=== PATIENT | female | born 1985 | race Two or more races ===

== ENCOUNTER 2023-06-06 17:07 | Emergency (ER) | payer BC, SELFPAY ==
[2023-06-06 17:39] VITALS: BP 128/80; PULSE 66; RESP 18; TEMP 36.1; O2SAT 98; BMI 23.0
--- NOTE | 2023-06-06 17:44 | ED_ITS ---
HPI - Ear Problem General Chief complaint: Ear Problems Stated complaint: left ear infection not responding to antibiotics Time Seen by Provider: 06/06/23 17:41 Source: patient and family Mode of arrival: ambulatory Limitations: no limitations History of Present Illness HPI Narrative: 38-year-old female presenting to the ER with complaints of persistent pressure to the left ear. She reports that she was seen by her PCP approximately 8 days ago and was prescribed Ceftin. She went back due to no symptomatic relief in her PCP discontinue the Ceftin and started her on doxycycline. She reports she has been on doxycycline for 4 days and she still continues to have the pressure in her left ear with decreased hearing. She denies any other symptoms related to this. MD Complaint: ear pain and decreased hearing Location: left ear Duration: constant Severity: moderate Relieving factors: nothing Exacerbating factors: nothing Discharge from ear: no Associated symptoms ear: decreased hearing Treatment prior to arrival: other (see above ) Related Data Previous Rx's Medication Instructions Recorded prednisone 20 mg tablet 40 mg (2 x 20 mg) PO DAILY 06/06/23 inflammation 5 days #10 tabs Allergies Allergy/AdvReac Type Severity Reaction Status Date / Time Penicillins Allergy Rash Verified 06/06/23 17:39 Review of Systems Review of Systems: Constitutional : No Weight loss, No Fever, No Chills, No Night Sweats, No Fatigue, No Malaise ENT/Mouth : No Hearing loss, + Ear Pain, No Nasal Congestion, No Sinus Pain, No Hoarseness, No sore throat, No Rhinorrhea, No Swallowing Difficulty Eyes: No Eye Pain, No Swelling, No Redness, No Foreign Body, No Discharge, No Vision Changes Cardiovascular : No Chest Pain, No SOB, No Dyspnea on Exertion, No Orthopnea, No Edema, No Palpitations Respiratory : No Cough, No Sputum, No Wheezing, No Smoke Exposure, No Dyspnea Gastrointestinal : No Nausea, No Vomiting, No Diarrhea, No Constipation, No abdominal Pain, No Hematochezia, No Melena Genitourinary : no irregular bleeding, No Dysuria, No Urinary Frequency, No Hematuria, No Urinary Incontinence, No Urgency, No Flank Pain, No Urinary Flow Changes, No Hesitancy Musculoskeletal : No joint pain, No Myalgias, No Joint Swelling Skin : No Skin Lesions, No rash Neuro : No Weakness, No Numbness, No Paresthesias, No Loss of Consciousness, No Dizziness, No Headache Psych : No Anxiety/Panic, No Depression, No SI/HI/AH/VH, No Social Issues, Heme/Lymph: No Bruising, No Bleeding,No Lymphadenopathy Endocrine : No Polyuria, No Polydipsia, No Temperature Intolerance Yes all other systems are reviewed and are negative [facility] Past Medical History Attestation statement: The following information was validated with the patient. Source: old records reviewed and nursing notes reviewed Physical Exam Vital Signs: Vital Signs: Last Vital Signs Temp 97.0 F 06/06/23 17:39 Pulse 66 06/06/23 17:39 Resp 18 06/06/23 17:39 BP 128/80 06/06/23 17:39 Pulse Ox 98 06/06/23 17:39 O2 Del Method Room Air 06/06/23 17:39 BMI result Body Mass Index 23.0 vital signs have been reviewed as normal and appeared to be correct. Blood pressure normal Heart rate normal. Respiration rate normal. Temperature normal. Oxygen saturation normal. Appearance: Alert. Oriented X3. No acute distress. Head: Normal external exam. Normocephalic. Atraumatic. Eyes: External ear canals bilaterally within normal limits. No tenderness over the pinna, tragus. No tenderness over the mastoid. No erythema or swelling over the mastoid. Right tympanic membrane within normal limits. Left tympanic membrane mildly erythematous with effusion noted. No tenderness over the tragus, pinnae and no tenderness over the mastoid or erythema or swelling. Normal tympanic membrane. PERRLA. EOMI. Conjunctiva and sclera normal. Eyelids normal. ENT: Pharynx normal. Uvula midline. Moist mucous membranes. Neck: Normal inspection. Neck supple. FROM. CVS: Normal heart rate and rhythm. Respiratory: No respiratory distress. Painless inspiration. Skin: Skin warm and dry. Normal skin color. Normal skin turgor. No rashes/lesions/lacerations noted. Extremities: Extremities exhibit normal range of motion. Extremities nontender. Neuro: Oriented X 3. Normal steady gait. Course Course Course Narrative: Patient will left effusion to left ear. H and P not consistent with otitis media at this time, otitis externa. I considered mastoiditis, epidural abscess, malig OE, TMJ, meningitis, and other infxs but the hx, exam& data did not support the diagnoses. The pt/family was advised that some diseases present atypically & the pt was given explicit DC instructions. Patient will be discharged with a course of steroids along with instructions to continue taking her previously prescribed medications as prescribed and to return if any new or worsening symptoms. Patient at bedside understand agree this plan Medical Decision Making Medical Decision Making MDM Narrative: see course Differential Diagnosis Differential Diagnoses: The differential diagnosis associated with the presentation includes see course Independent Historian Clinical information obtained from an independent historian. History obtained from or confirmed by: Spouse External Record Review External record reviewed: Inpatient record, Office record, Outpatient record, Prior outpatient labs, Prior outpatient radiology, Primary care record and Outside ED record All prior labs/imaging/EKG and notes that are accessible in our system reviewed by myself. Prescription Management I considered prescription management with: Other (Prednisone) Social Determinants Patient?s care significantly limited by Social Determinants of Health including: Other Social Determinant of Health Discharge Plan Discharge Clinical Impression: Acute effusion of left ear Patient Disposition: Home, Self-Care Instructions: Ear Infection (ED), Serous Otitis Media (ED) Prescriptions: New prednisone 20 mg tablet 40 mg PO DAILY 5 Days Qty: 10 0RF Referrals: Virgilio Tsang [Physician] - 1 day
== END 2023-06-06 17:53 | disposition home or self-care (01) ==
PROVIDERS: Emergency Provider Emergency Medicine
DX: H93.8X2 Other specified disorders of left ear (principal); Z88.0 Allergy status to penicillin
CPT/HCPCS: 99282; 99283